=== PATIENT | male | born 1955 | race Caucasian/White ===

== ENCOUNTER → 2016-10-26 | Outpatient (CLI) | payer BC ==
[~2016-10-26] MED LIST: ALBUAER2 INH; ASPI81TA28 PO; CLR10 PO; CZR50 PO; DILT120T3 PO; FLM4 PO; FLUT0.0529; FLUT0.15 NAE; HYDR-5688 PO; METF500T5 PO; MOME200A INH; MULT-506 PO; NAPR1TAB9 PO; PRAV10TA39 PO; PRS5 PO; PRVC/20 PO; PRVHFAIN INH; RANI150T2 PO; SPR25 PO
[2016-10-26 12:09] LABS: BASO % 0.5 %; BASO ABS # 0.04 K/uL (0-0.2); COMPLETE YES; EOS % 3.3 %; HEMATOCRIT 41.2 % (42-52); IG% 0.3 %; LYMPH % 23.6 %; LYMPH ABS # 1.72 K/uL (1.2-3.4); MEAN CORPUSCULAR HEMOGLOBIN 31.2 pg (25-34); MEAN CORPUSCULAR HGB CONC 34.7 g/dl (32-36); MEAN PLATELET VOLUME 11.6 fL (7.4-10.4); MONO % 11.2 %; NEUT % 61.1 %; PLATELET COUNT 173 K/uL (130-400); RED BLOOD COUNT 4.58 M/uL (4.7-6.1)
[2016-10-26 12:14] LABS: URINE APPEARANCE CLEAR (CLEAR); URINE BILIRUBIN NEG (NEG); URINE COLOR YELLOW; URINE EPITHELIAL CELL AUTO 0-5 /lpf (0-5); URINE NITRITE NEG (NEG); URINE SPECIFIC GRAVITY 1.015 (1.000-1.030); UROBILINOGEN NEG (NEG); ZZUR CULT IF INDIC CLEAN CATCH NO
[2016-10-26 12:17] LABS: MANUAL MICROSCOPIC REQUIRED? NO; REVIEW REQ? NO
[2016-10-26 13:54] LABS: ESTIMATED AVERAGE GLUCOSE 111 mg/dl; HA1C FLAG Normal (Normal)
[2016-10-26 14:38] LABS: ALT/SGPT 32 U/L (12-78); BLOOD UREA NITROGEN 18 mg/dl (7-18); CALCIUM 9.1 mg/dl (8.5-10.1); CARBON DIOXIDE 24 mmol/L (21-32); CHLORIDE 109 mmol/L (98-107); CHOLESTEROL 135 mg/dl (0-200); GLUCOSE 101 mg/dl (70-99); POTASSIUM 4.1 mmol/L (3.5-5.1); SODIUM 142 mmol/L (136-145); TRIGLYCERIDES 87 mg/dl (0-150); VERY LOW DENSITY LIPOPROT CALC 17 mg/dl
[2016-10-26 14:44] LABS: ALB/GLOB RATIO 1.2 (0.9-2); AST/SGOT 37 U/L (15-37); CHOLESTEROL/HDL RATIO 3.2; HDL CHOLESTEROL 42 mg/dl; LDL CHOLESTEROL CALCULATED 76 mg/dl; PROSTATE SPECIFIC ANTIGEN 0.324 ng/ml (0.000-4.000)
[2016-10-26 14:54] LABS: ALKALINE PHOSPHATASE 70 U/L (45-117)
== END | disposition home or self-care (01) ==
LOC: C.LABBFT 07:49
PROVIDERS: ATTEND Internal Medicine
DX: I10 Essential (primary) hypertension (principal); R73.01 Impaired fasting glucose; E78.5 Hyperlipidemia, unspecified; Z12.5 Encounter for screening for malignant neoplasm of prostate

== ENCOUNTER 2017-03-01 21:15 | Emergency (ER) | payer BC ==
[~2017-03-01] VITALS: Ht 180.3 cm; Wt 127.3 kg
[~2017-03-01 21:15] MED LIST changes: -CZR50 PO; -FLM4 PO; -FLUT0.15 NAE; -PRS5 PO; -PRVC/20 PO; -PRVHFAIN INH; -RANI150T2 PO; -SPR25 PO
[2017-03-01 21:22] VITALS: TEMP 36.7; Ht 180.3 cm; Wt 127.3 kg
[2017-03-01] MEDS ORDERED: PRVC/20 PO (22:04)
[2017-03-01] MEDS ORDERED: CZR50 PO (22:04)
[2017-03-01] MEDS ORDERED: PRS5 PO (22:04)
[2017-03-01] MEDS ORDERED: FLUT0.15 NAE (22:07)
[2017-03-01] MEDS ORDERED: PRVHFAIN INH (22:07)
[2017-03-01] MEDS ORDERED: SPR25 PO (22:35)
[2017-03-01] MEDS ORDERED: RANI150T2 PO (22:35)
[2017-03-01] MEDS ORDERED: FLM4 PO (22:35)
[2017-03-01 22:56] LABS: BASO % 0.7 %; BASO ABS # 0.06 K/uL (0-0.2); COMPLETE YES; EOS % 3.8 %; HEMATOCRIT 38.2 % (42-52); IG% 0.3 %; LYMPH % 26.5 %; LYMPH ABS # 2.43 K/uL (1.2-3.4); MEAN CELL VOLUME 88.4 fL (80-100); MEAN CORPUSCULAR HEMOGLOBIN 31.9 pg (25-34); MEAN CORPUSCULAR HGB CONC 36.1 g/dl (32-36); MEAN PLATELET VOLUME 10.1 fL (7.4-10.4); MONO % 11.8 %; NEUT % 56.9 %; PLATELET COUNT 262 K/uL (130-400); RED BLOOD COUNT 4.32 M/uL (4.7-6.1); WHITE BLOOD COUNT 9.16 K/uL (4.8-10.8)
[2017-03-01 23:14] LABS: BUN/CREATININE RATIO 19.8 (10-20); CALCIUM 8.6 mg/dl (8.5-10.1); CREATININE 1.2 mg/dl (0.60-1.40); POTASSIUM 4.4 mmol/L (3.5-5.1)
[2017-03-02 00:32] VITALS: BP 120/70; PULSE 73; O2SAT 98
--- NOTE | 2017-03-02 02:39 | EMERGENCY ROOM VISIT NOTE ---
History First contact with patient: 22:25 Chief Complaint: SWELLING TO EXTREMITY Stated Complaint: LEGS SWELLING,RT LEG WORSE History of Present Illness The patient is a 61 year old male who presents to the Emergency Room with complaints of bilateral lower extremity edema for the past 10 days. The patient states that his symptoms began prior to going on vacation in [facility]. He has a history of lower extremity edema, and takes spironolactone on a daily basis for this. The patient has an appointment in 4 or 5 days with his primary care physician, however he became worried as his symptoms seem to be progressive and not improving. When he elevates his legs, the swelling does go down. The patient has not had fever or chills. No chest pain, chest tightness, shortness of breath, coughing. He rates his discomfort a 4/10. Review of Systems More than 10 systems were reviewed and otherwise negative with the exception of history of present illness. Past Medical/Surgical History Medical Problems: (1) Hypertension Nos (2) Obesity, Nos Surgical Problems: (1) History of total knee replacement Family History Cancer Gallbladder disease Heart disease Hypertension Lung disease Social History Smoking Status: Never Smoker Alcohol Use: none Drug Use: none Marital Status: Housing Status: lives with family Occupation Status: employed Current/Historical Medications Scheduled Aspirin (Aspirin Ec), 81 MG PO QAM Diltiazem Hcl (Diltiazem Hcl), 120 MG PO TID Finasteride (Finasteride), 5 MG PO DAILY Loratadine (Claritin), 10 MG PO DAILY Losartan Potassium (Losartan Potassium), 50 MG PO DAILY Metformin Hcl Er (Glucophage Er), 1,000 MG PO QPM Mometasone Furoate-Formoterol (Dulera 200/5 Mcg), 2 PUFFS INH BID Naproxen (Aleve), 220 MG PO QAM Pravastatin Sod (Pravastatin Sodium), 20 MG PO HS Ranitidine HCl (Ranitidine HCl), 150 MG PO QAM Spironolactone (Spironolactone), 25 MG PO QAM Tamsulosin HCl (Tamsulosin HCl), 0.4 MG PO HS Scheduled PRN Albuterol (Ventolin Hfa), 2 PUFFS INH QID PRN for SOB/Wheezing Fluticasone Propionate (Nasal) (Flonase Allergy Relief), 2 SPRAYS MARY JANE DAILY PRN for Allergy Symptoms Physical Exam Vital Signs Date Time Temp Pulse Resp B/P (MAP) Pulse Ox O2 Delivery O2 Flow Rate FiO2 03/02/17 00:32 73 16 120/70 98 Room Air 03/01/17 22:48 75 16 117/63 98 Room Air 03/01/17 21:22 36.7 76 18 135/78 96 Room Air Pain Rating (0-10): 0 Physical Exam VITALS: Vitals are noted on the nurse's note and reviewed by myself. Vital signs stable. GENERAL: Well-developed, well-nourished, white male, who is in no acute distress and resting comfortably. Patient is cooperative with the examination. HEART: Regular rate and rhythm without murmurs gallops or rubs. LUNGS: Clear to auscultation bilaterally without wheezes, rales or rhonchi. No retractions or accessory muscle use. MUSCULOSKELETAL: 1+ pitting pretibial edema in the bilateral lower extremities. There is mild stasis dermatitis right greater than left. No palpable cord or posterior calf tenderness. No evidence of cellulitis of the lower extremities. NEURO: Patient was alert and oriented to person place and time. CN II through XII grossly intact. Medical Decision & Procedures ER Provider Diagnostic Interpretation: Preliminary Findings Only See Final Report For Complete Findings US VENOUS BILATERAL LOWER EXTREMITIES: No DVT Laboratory Results 03/01/17 22:45 Red Blood Count 4.32, Mean Corpuscular Volume 88.4, Mean Corpuscular Hemoglobin 31.9, Mean Corpuscular Hemoglobin Concent 36.1, Mean Platelet Volume 10.1, Neutrophils (%) (Auto) 56.9, Lymphocytes (%) (Auto) 26.5, Monocytes (%) (Auto) 11.8, Eosinophils (%) (Auto) 3.8, Basophils (%) (Auto) 0.7, Neutrophils # (Auto ) 5.21, Lymphocytes # (Auto) 2.43, Monocytes # (Auto) 1.08, Eosinophils # (Auto ) 0.35, Basophils # (Auto) 0.06 03/01/17 22:45 Test 03/01/17 22:45 White Blood Count 9.16 K/uL (4.8-10.8) Red Blood Count 4.32 M/uL (4.7-6.1) Hemoglobin 13.8 g/dL (14.0-18.0) Hematocrit 38.2 % (42-52) Mean Corpuscular Volume 88.4 fL (80-100) Mean Corpuscular Hemoglobin 31.9 pg (25-34) Mean Corpuscular Hemoglobin Concent 36.1 g/dl (32-36) Platelet Count 262 K/uL (130-400) Mean Platelet Volume 10.1 fL (7.4-10.4) Neutrophils (%) (Auto) 56.9 % Lymphocytes (%) (Auto) 26.5 % Monocytes (%) (Auto) 11.8 % Eosinophils (%) (Auto) 3.8 % Basophils (%) (Auto) 0.7 % Neutrophils # (Auto) 5.21 K/uL (1.4-6.5) Lymphocytes # (Auto) 2.43 K/uL (1.2-3.4) Monocytes # (Auto) 1.08 K/uL (0.11-0.59) Eosinophils # (Auto) 0.35 K/uL (0-0.5) Basophils # (Auto) 0.06 K/uL (0-0.2) RDW Standard Deviation 41.4 fL (36.4-46.3) RDW Coefficient of Variation 12.8 % (11.5-14.5) Immature Granulocyte % (Auto) 0.3 % Immature Granulocyte # (Auto) 0.03 K/uL (0.00-0.02) Anion Gap 4.0 mmol/L (3-11) Est Creatinine Clear Calc Drug Dose 87.8 ml/min Estimated GFR () 75.2 Estimated GFR (Non- 64.9 BUN/Creatinine Ratio 19.8 (10-20) Calcium Level 8.6 mg/dl (8.5-10.1) Total Bilirubin 0.2 mg/dl (0.2-1) Aspartate Amino Transf (AST/SGOT) 33 U/L (15-37) Alanine Aminotransferase (ALT/SGPT) 31 U/L (12-78) Alkaline Phosphatase 74 U/L (45-117) Troponin I 0.034 ng/ml (0-0.045) Pro-B-Type Natriuretic Peptide 22 pg/ml (0-900) Total Protein 7.6 gm/dl (6.4-8.2) Albumin 3.8 gm/dl (3.4-5.0) Globulin 3.8 gm/dl (2.5-4.0) Albumin/Globulin Ratio 1.0 (0.9-2) ED Course Physical exam and history were performed. Nursing notes, EMR, and Medication List were personally reviewed. Patient appears to have swelling to the bilateral lower extremities for the past 10 days. On examination the patient does not appear toxic, however he does have noted swelling to the lower extremities. He does have a recent travel history as she was on vacation in [facility]. IV access was established and labs were obtained. Ultrasound was performed. The patient's blood work does not show a significantly elevated white blood cell count, gross anemia, bandemia, or significant electrolyte imbalance. Troponin 1 is negative. BNP is negative. Ultrasound does not show evidence of acute DVT. Overall the patient appears stable for discharge home. He is likely experiencing some dependent edema, and evidently has an upcoming appointment in a few days with his primary care physician. I did discuss conservative measures with the patient including decrease in dietary salt, rest, elevation, and compression. The patient may also wish to have a conversation with his PCP about as needed dosing of a diuretic if this continues. The patient was pleased with this plan and voiced understanding. He will keep his upcoming appointment. He was otherwise invited back to the ER with any new, worsening, or concerning symptoms. The chart was completed utilizing [employer] Speech Voice Recognition Software. Grammatical errors, random word insertions, pronoun errors, and incomplete sentences are an occasional consequence of this system due to software limitations, ambient noise, and hardware issues. Any formal questions or concerns about the content, text, or information contained within the body of this dictation should be directly addressed to the provider for clarification. . Medical Decision Differential diagnosis: Etiologies such as DVT, musculoskeletal, infection, joint effusion, trauma, lymphedema, idiopathic, CHF, as well as others were entertained.. Impression Primary Impression: Lower extremity edema Departure Information Dispostion Home / Self-Care Condition GOOD Forms HOME CARE DOCUMENTATION FORM, IMPORTANT VISIT INFORMATION Patient Instructions My [facility] Additional Instructions You were seen and evaluated today on an emergency basis only. This is not a substitute for, or an effort to provide, complete comprehensive medical care. It is not possible to recognize and treat all injuries or illnesses in a single emergency department visit. For this reason it is recommended that you followup with your primary care physician next week as scheduled for a follow-up. Continue your at-home medications. Avoid dietary salt. Elevate your legs for comfort. You are welcome to return to the emergency department anytime with new, worsening, or concerning symptoms.
--- NOTE | 2017-03-02 07:02 | DIAGNOSTIC IMAGING REPORT ---
BILATERAL LOWER EXTREMITY VENOUS DOPPLER HISTORY: B/L Leg edema. Recent travel. COMPARISON STUDY: None. FINDINGS: There is normal compressibility, flow, and augmentation within the bilateral lower extremity deep venous systems. IMPRESSION: No DVT within the right or left lower extremity. Electronically signed by: Ayaz Muro M.D. 03/02/2017 7:01 AM Dictated Date/Time: 03/02/2017 7:01 AM
== END 2017-03-02 01:47 | disposition home or self-care (01) ==
LOC: C.EDB 21:15
DX: R60.0 Localized edema (principal); I10 Essential (primary) hypertension; Z96.659 Presence of unspecified artificial knee joint; Z79.82 Long term (current) use of aspirin; Z79.899 Other long term (current) drug therapy; Z80.9 Family history of malignant neoplasm, unspecified; Z83.79 Family history of other diseases of the digestive system; Z82.49 Family history of ischemic heart disease and other diseases of the circulatory system

== ENCOUNTER → 2017-07-04 | Day surgery (SDC) | payer BC ==
[2017-06-25 10:10] VITALS: Ht 180.3 cm; Wt 122.7 kg
[~2017-07-04] VITALS: Ht 180.3 cm; Wt 122.7 kg
[~2017-07-04] MED LIST changes: -ALBUAER2 INH; +CZR50 PO; +FLM4 PO; -FLUT0.0529; +FLUT0.15 NAE; -HYDR-5688 PO; +LIDOCAINE HCL 2% 2 ML VIAL (20MG/ML) ONE; -MULT-506 PO; -PRAV10TA39 PO; +PROPOFOL IV EMULSION 10 MG/ML 20 ML VIAL IV ONE; +PRS5 PO; +PRVC/20 PO; +PRVHFAIN INH; +RANI150T2 PO; +SODIUM CHLORIDE 0.9% 500ML 500 ML IV ONE; +SPR25 PO
--- NOTE | 2017-07-04 14:05 | Endo History and Physical ---
History & Physical Date of Service: Jul 04, 2017. Chief Complaint: Screening Referring Physician: Dr. Villegas History of Present Illness 62 yo CM who presents for screening colonoscopy. Past Medical History Diabetes, High Cholesterol, Hypertension Past Surgical History Hx Cardiac Surgery: No Hx Internal Defibrillator: No Hx Pacemaker: No Hx Abdominal Surgery: Yes (INGUINAL HERNIA REPAIR) Hx of Implantable Prosthesis: No Hx Post-Op Nausea and Vomiting: No Hx Cancer Surgery: No Hx Thoracic Surgery: No Hx Orthopedic: Yes (LT TKA, LT RCR, L4-L5 MICRODISCECTOMY, RT KNEE SCOPE) Hx Urinary Tract Surgery: No Family History None Social History Smoking Status: Former Smoker Hx Substance Use: No Hx Alcohol Use: Yes ("MINIMAL") Allergies Coded Allergies: Cephalexin (Verified Allergy, Mild, RASH, 06/25/17) Lisinopril (Verified Allergy, Mild, Cough, 06/25/17) Penicillins (Verified Allergy, Mild, rash, 06/25/17) Shellfish (Verified Allergy, Mild, throat swelling, SOB, 06/25/17) ALLERGY TO RAW SHELLFISH Warfarin (Verified Allergy, Unknown, RASH, 07/04/17) Codeine (Verified Adverse Reaction, Unknown, HEADACHE, 06/25/17) Meloxicam (Verified Adverse Reaction, Unknown, HEADACHE, 06/25/17) Current Medications Reported Home Medications Medications Dose Route/Sig Max Daily Dose Days Date Category Flonase Allergy Relief (Fluticasone Propionate (Nasal)) 50 Mcg/Act Spr 2 Sprays MARY JANE DAILY PRN 03/01/17 Reported Ventolin Hfa (Albuterol) 60 Puffs/5400 Mcg Aers 2 Puffs INH QID PRN 03/01/17 Reported Losartan Potassium 50 Mg Tab 50 Mg PO QAM 03/01/17 Reported Pravastatin Sodium (Pravastatin Sod) 20 Mg Tab 20 Mg PO HS 03/01/17 Reported Finasteride 5 Mg Tab 5 Mg PO LUNCH 03/01/17 Reported Dulera 200/5 Mcg (Mometasone Furoate-Formoterol) 1 Aer Aer 2 Puffs INH BID 01/01/15 Reported Tamsulosin HCl 0.4 Mg Cap 0.4 Mg PO HS 11/23/14 Reported Ranitidine HCl 150 Mg Tab 150 Mg PO QAM 11/23/14 Reported Spironolactone 25 Mg Tab 25 Mg PO QAM 11/23/14 Reported Aleve (Naproxen) 220 Mg Tab 220 Mg PO QAM 02/09/14 Reported Glucophage Er (Metformin HCl) 500 Mg Tab 2 Tabs PO QPM 02/09/14 Reported Diltiazem Hcl 120 Mg Tab 120 Mg PO TID 02/09/14 Reported Aspirin Ec (Aspirin) 81 Mg Tab 81 Mg PO QAM 02/09/14 Reported Claritin (Loratadine) 10 Mg Tab 10 Mg PO QAM 10/31/13 Reported Vital Signs Weight (Kilograms): 122.73 Height (Feet): 5 Height (Inches): 11 Physical Exam General Appearance: WD/WN, no apparent distress Respiratory/Chest: Auscultation: breath sounds normal Cardiovascular: Heart Auscultation: RRR Abdomen: Bowel Sounds: normal Inspection & Palpation: soft, non-distended, no tenderness, guarding & rebound Assessment and Plan Assessment: 62 yo CM who presents for screening colonoscopy. Plan: Proceed with colonoscopy.
[2017-07-04 14:16] VITALS: TEMP 37.1
--- NOTE | 2017-07-04 14:51 | Discharge Instructions ---
Endoscopy Patient Instructions Date / Procedure(s) Performed Jul 04, 2017. Colonoscopy Allergy Information Coded Allergies: Cephalexin (Verified Allergy, Mild, RASH, 06/25/17) Lisinopril (Verified Allergy, Mild, Cough, 06/25/17) Penicillins (Verified Allergy, Mild, rash, 06/25/17) Shellfish (Verified Allergy, Mild, throat swelling, SOB, 06/25/17) ALLERGY TO RAW SHELLFISH Warfarin (Verified Allergy, Unknown, RASH, 07/04/17) Codeine (Verified Adverse Reaction, Unknown, HEADACHE, 06/25/17) Meloxicam (Verified Adverse Reaction, Unknown, HEADACHE, 06/25/17) Discharge Date / Findings Jul 04, 2017. Rectal polyp Internal hemorrhoids Medication Instructions Stopped Medication(s): Spironolactone ASA 81 mg Metformin OK to resume all medications today as prescribed Reported Home Medications Medications Dose Route/Sig Max Daily Dose Days Date Category Flonase Allergy Relief (Fluticasone Propionate (Nasal)) 50 Mcg/Act Spr 2 Sprays MARY JANE DAILY PRN 03/01/17 Reported Ventolin Hfa (Albuterol) 60 Puffs/5400 Mcg Aers 2 Puffs INH QID PRN 03/01/17 Reported Losartan Potassium 50 Mg Tab 50 Mg PO QAM 03/01/17 Reported Pravastatin Sodium (Pravastatin Sod) 20 Mg Tab 20 Mg PO HS 03/01/17 Reported Finasteride 5 Mg Tab 5 Mg PO LUNCH 03/01/17 Reported Dulera 200/5 Mcg (Mometasone Furoate-Formoterol) 1 Aer Aer 2 Puffs INH BID 01/01/15 Reported Tamsulosin HCl 0.4 Mg Cap 0.4 Mg PO HS 11/23/14 Reported Ranitidine HCl 150 Mg Tab 150 Mg PO QAM 11/23/14 Reported Spironolactone 25 Mg Tab 25 Mg PO QAM 11/23/14 Reported Aleve (Naproxen) 220 Mg Tab 220 Mg PO QAM 02/09/14 Reported Glucophage Er (Metformin HCl) 500 Mg Tab 2 Tabs PO QPM 02/09/14 Reported Diltiazem Hcl 120 Mg Tab 120 Mg PO TID 02/09/14 Reported Aspirin Ec (Aspirin) 81 Mg Tab 81 Mg PO QAM 02/09/14 Reported Claritin (Loratadine) 10 Mg Tab 10 Mg PO QAM 10/31/13 Reported Provider Instructions Activity Restrictions - No exercising or heavy lifting for 24 hours. - Do not drink alcohol the day of the procedure. - Do not drive a car or operate machinery until the day after the procedure. - Do not make any important decisions or sign important papers in 24 hours after the procedure. Following Day: - Return to full activity which may include returning to work/school. Diet Start your diet with liquids and light foods (jello, soup, juice, toast). Then eat your usual diet if not nauseated. Treatment For Common After Affects For mild abdominal pain, bloating, or excessive gas: - Rest - Eat lightly - Lie on right side Follow-Up Information Follow-up with Dr Villegas as scheduled Anesthesia Information What You Should Know You have had a procedure that required some medicine to reduce anxiety and discomfort. This treatment is called moderate sedation. After receiving the treatment, you may be sleepy, but you will be able to breathe on your own. The effects of the treatment may last for several hours. Follow these instructions along with Activity/Diet recommendations noted above: * Do NOT do anything where dizziness or clumsiness would be dangerous. * Rest quietly at home today, then you can be up and about tomorrow. * Have a responsible person stay with you the rest of today. * You may have had an I.V. today. If so, you may take the dressing off later today. Recommendations Call your doctor if: * Trouble breathing * Continuous vomiting for more than 24 hours * Temperature above 101 degrees * Severe abdominal pain or bloating * Pain not relieved by pain medicine ordered * There is increased drainage or redness from any incision * A large amount of rectal bleeding greater than 2-3 tablespoons. (If you had a polyp/s removed or have hemorrhoids, a small amount of blood - from the rectum is to be expected.) * You have any unanswered questions or concerns. IN THE EVENT OF A SERIOUS EMERGENCY, GO TO THE NEAREST EMERGENCY ROOM Your discharge instructions were prepared by provider Johnnie Spann. Patient Instructions Signature Page Yusuf Garza Patient (or Guardian) Signature/Date: I have read and understand the instructions given to me by my caregivers. Caregiver/RN/Doctor Signature/Date: The above-named patient and/or guardian has received patient instructions on this date. + Original Patient Signature Page (only) stays with chart. Please make copy for patient.
--- NOTE | 2017-07-04 14:58 | GI REPORT ---
Procedure Date: 07/04/2017 1:50 PM Procedure: Colonoscopy Indications: Screening for colorectal malignant neoplasm Medicines: Monitored Anesthesia Care Complications: No immediate complications. Estimated Blood Loss: Estimated blood loss: none. Procedure: Pre-Anesthesia Assessment: - Prior to the procedure, a History and Physical was performed, and patient medications and allergies were reviewed. The patient's tolerance of previous anesthesia was also reviewed. The risks and benefits of the procedure and the sedation options and risks were discussed with the patient. All questions were answered, and informed consent was obtained. Prior Anticoagulants: The patient has taken aspirin, last dose was 1 day prior to procedure. ASA Grade Assessment: III - A patient with severe systemic disease. After reviewing the risks and benefits, the patient was deemed in satisfactory condition to undergo the procedure. After I obtained informed consent, the scope was passed under direct vision. Throughout the procedure, the patient's blood pressure, pulse, and oxygen saturations were monitored continuously. The Scope was introduced through the anus and advanced to the terminal ileum. The colonoscopy was performed without difficulty. The patient tolerated the procedure well. The quality of the bowel preparation was good. The terminal ileum, ileocecal valve, appendiceal orifice, and rectum were photographed. Findings: The perianal and digital rectal examinations were normal. A 4 mm polyp was found in the rectum. The polyp was sessile. The polyp was removed with a cold snare. Resection and retrieval were complete. Non-bleeding internal hemorrhoids were found during retroflexion. The hemorrhoids were small. Impression: - One 4 mm polyp in the rectum, removed with a cold snare. Resected and retrieved. - Non-bleeding internal hemorrhoids. Recommendation: - Resume previous diet. - Continue present medications. - Repeat colonoscopy for surveillance based on pathology results. - Return to primary care physician as previously scheduled. Johnnie Spann DO 07/04/2017 2:58:27 PM This report has been signed electronically. Note Initiated On: 07/04/2017 1:50 PM I attest to the content of the Intraoperative Record and orders documented therein, exceptions below
[2017-07-04 15:15] VITALS: BP 125/78; PULSE 59; O2SAT 95
--- NOTE | 2017-07-04 15:15 | Anesthesiology Progress Note ---
Anesthesia Post Op Note Date & Time Jul 04, 2017 at 15:15 Vital Signs Vital Signs Past 12 Hours Date Time Temp Pulse Resp B/P (MAP) Pulse Ox O2 Delivery O2 Flow Rate FiO2 07/04/17 15:00 63 16 129/72 (91) 96 Room Air 07/04/17 14:45 63 16 93/47 (62) 94 Room Air 07/04/17 14:16 37.1 72 20 148/71 (96) 96 Room Air Notes Mental Status: alert / awake / arousable, participated in evaluation Pt Amnestic to Procedure: Yes Nausea / Vomiting: adequately controlled Pain: adequately controlled Airway Patency, RR, SpO2: stable & adequate BP & HR: stable & adequate Hydration State: stable & adequate Anesthetic Complications: no major complications apparent
== END | disposition home or self-care (01) ==
LOC: C.GI 13:42
PROVIDERS: ATTEND Internal Medicine
DX: Z12.11 Encounter for screening for malignant neoplasm of colon (principal); D12.8 Benign neoplasm of rectum; K64.8 Other hemorrhoids; I10 Essential (primary) hypertension; E78.00 Pure hypercholesterolemia, unspecified; E11.9 Type 2 diabetes mellitus without complications; Z79.82 Long term (current) use of aspirin; Z79.899 Other long term (current) drug therapy; Z79.84 Long term (current) use of oral hypoglycemic drugs; J45.909 Unspecified asthma, uncomplicated; G47.33 Obstructive sleep apnea (adult) (pediatric); J30.2 Other seasonal allergic rhinitis; M19.90 Unspecified osteoarthritis, unspecified site

== ENCOUNTER → 2017-10-31 | Outpatient (CLI) | payer OTHER ==
[~2017-10-31] MED LIST changes: -LIDOCAINE HCL 2% 2 ML VIAL (20MG/ML) ONE; -PROPOFOL IV EMULSION 10 MG/ML 20 ML VIAL IV ONE; -SODIUM CHLORIDE 0.9% 500ML 500 ML IV ONE
[2017-10-31 12:22] LABS: BASO % 0.4 %; BASO ABS # 0.03 K/uL (0-0.2); EOS % 2.2 %; EOS ABS # 0.17 K/uL (0-0.5); HEMATOCRIT 42.8 % (42-52); HEMOGLOBIN 14.9 g/dL (14.0-18.0); IG# 0.03 K/uL (0.00-0.02); LYMPH % 17.1 %; LYMPH ABS # 1.31 K/uL (1.2-3.4); MEAN CORPUSCULAR HGB CONC 34.8 g/dl (32-36); MEAN PLATELET VOLUME 11.4 fL (7.4-10.4); MONO % 9.9 %; MONO ABS # 0.76 K/uL (0.11-0.59); NEUT ABS # 5.38 K/uL (1.4-6.5); PLATELET COUNT 228 K/uL (130-400); RED CELL DISTRIBUTION WIDTH SD 42.4 fL (36.4-46.3); WHITE BLOOD COUNT 7.68 K/uL (4.8-10.8)
[2017-10-31 12:37] LABS: HEMOGLOBIN A1C 5.7 % (4.5-5.6)
[2017-10-31 12:49] LABS: ALBUMIN 4.2 gm/dl (3.4-5.0); ALT/SGPT 26 U/L (12-78); AST/SGOT 29 U/L (15-37); BLOOD UREA NITROGEN 20 mg/dl (7-18); CALCIUM 9.4 mg/dl (8.5-10.1); CARBON DIOXIDE 24 mmol/L (21-32); CREATININE 1.26 mg/dl (0.60-1.40); GLUCOSE 124 mg/dl (70-99); POTASSIUM 4.2 mmol/L (3.5-5.1); SODIUM 135 mmol/L (136-145)
[2017-10-31 12:52] LABS: ALKALINE PHOSPHATASE 75 U/L (45-117); CHOLESTEROL 130 mg/dl (0-200); LDL CHOLESTEROL CALCULATED 70 mg/dl; TOTAL PROTEIN 8.3 gm/dl (6.4-8.2)
== END | disposition home or self-care (01) ==
LOC: C.LABBFT 08:11
PROVIDERS: ATTEND Internal Medicine
DX: R73.01 Impaired fasting glucose (principal); E78.5 Hyperlipidemia, unspecified; Z12.5 Encounter for screening for malignant neoplasm of prostate

== ENCOUNTER 2020-03-23 08:29 | Inpatient (IN) ==
--- NOTE | 2020-02-24 11:51 | PAT Medication Instructions ---
Medication Instructions Date of Service February 24, 2020 Home Medications Medication Instructions Recorded budesonide-formoterol HFA 160 2 puffs INH BID #3 inhaler 05/29/19 mcg-4.5 mcg/actuation aerosol inhaler ibuprofen 600 mg tablet 600 mg PO Q6H PRN #30 tab 11/18/19 diltiazem HCl 120 mg 120 mg PO TID #270 cap 12/23/19 capsule,extended release 24 hr famotidine 20 mg tablet 20 mg PO BID #180 tab 12/23/19 tamsulosin 0.4 mg capsule See Rx Instructions .ROUTE 02/03/20 .COMPLEX #30 cap albuterol sulfate 90 mcg/actuation aerosol inhaler 2 puffs INH Q6H PRN aspirin 81 mg tablet,delayed release 81 mg PO QAM loratadine 10 mg capsule 10 mg PO QAM budesonide-formoterol HFA 160 mcg-4.5 mcg/actuation aerosol inhaler 2 puffs INH BID ibuprofen 600 mg tablet 600 mg PO Q6H PRN diltiazem HCl 120 mg capsule,extended release 24 hr 120 mg PO TID famotidine 20 mg tablet 20 mg PO BID tamsulosin 0.4 mg capsule See Rx Instructions .ROUTE .COMPLEX ferrous sulfate [iron] 325 mg PO WK finasteride 5 mg PO QPM losartan 50 mg PO QAM metformin 1,000 mg PO QPM naproxen sodium [Aleve] 220 mg PO QAM pravastatin 20 mg PO QPM spironolactone 25 mg PO QAM ASK your surgeon for instructions ibuprofen 600 mg tablet 600 mg PO Q6H PRN naproxen sodium [Aleve] 220 mg PO QAM DO NOT take the morning of surgery loratadine 10 mg capsule 10 mg PO QAM ferrous sulfate [iron] 325 mg PO WK losartan 50 mg PO QAM spironolactone 25 mg PO QAM Take morning of surgery With a small sip of water, OTHERWISE NOTHING TO EAT OR DRINK AFTER MIDNIGHT: albuterol sulfate 90 mcg/actuation aerosol inhaler 2 puffs INH Q6H PRN (use if needed; please bring with you to hospital day of surgery if possible) aspirin 81 mg tablet,delayed release 81 mg PO QAM budesonide-formoterol HFA 160 mcg-4.5 mcg/actuation aerosol inhaler 2 puffs INH BID diltiazem HCl 120 mg capsule,extended release 24 hr 120 mg PO TID famotidine 20 mg tablet 20 mg PO BID tamsulosin 0.4 mg capsule See Rx Instructions .ROUTE .COMPLEX Take evening before surgery albuterol sulfate 90 mcg/actuation aerosol inhaler 2 puffs INH Q6H PRN .(if needed) budesonide-formoterol HFA 160 mcg-4.5 mcg/actuation aerosol inhaler 2 puffs INH BID diltiazem HCl 120 mg capsule,extended release 24 hr 120 mg PO TID famotidine 20 mg tablet 20 mg PO BID finasteride 5 mg PO QPM metformin 1,000 mg PO QPM pravastatin 20 mg PO QPM Other Notes If you have any questions please call us at [phone] or [phone] or [phone] or [phone]
--- NOTE | 2020-02-27 10:27 | History & Physical Report ---
Date of Service February 27, 2020 date of surgery: 03-23-20 Procedure: Right Total Knee Arthroplasty Assessment & Plan (1) Arthritis of right knee: Risks and benefits of procedure discussed in detail today, patient would like to proceed with a Right total knee replacement at [facility] as scheduled. will obtain medical clearance from Dr Villegas prior to surgery as well as obtain PATs at [facility]. Will place on ASA 81mg po bid x 1 month post op, f/u 2 weeks post op for routine post-operative care and x-ray, sooner if having any problems. will make arrangements for HHPT at the time of discharge. At this point in time, has failed conservative measures and would like to proceed with surgical intervention. The risks and benefits have been discussed including, but not limited to, risk of infection, nerve injury, stiffness, loss of motion, failure to improve, etc. Reasonable outcomes and options of treatment were discussed. An explanation of appropriate alternatives to the procedure that may be advantageous were discussed and their risks and benefits, as well as the risks and benefits of not proceeding with treatment. I offered to answer any additional inquiries concerning the treatment involved. All the patient's questions were answered. The patient is agreeable, understanding of the treatment plan and alternatives, and wishes to proceed with the treatment plan. History of Present Illness Chief Complaint: Right knee pain Primary Care Provider: RACHEL Cárdenas Yusuf is a 64 year old male who complains of Right knee pain, presents for pre-op evaluation prior to a Right total knee replacement by dr March at [facility]. she complains of pain, crepitus, decreased range of motion, instability and stiffness in the right knee. she states that the symptoms have been chronic and non-traumatic. she states that the symptoms occur constantly with intermittent worsening. Currently the patient states that the symptoms are moderate-severe. The pain is described as aching, sharp and throbbing. The symptoms occur continuously. The symptoms are aggravated by ascending stairs, daily activities, first steps while awake walking. Prior NSAIDs include Ibuprofen and Aleve as well as prior pain medications include Tylenol. He has had Pt and sometimes uses a knee brace. Allergies Allergy/AdvReac Type Severity Reaction Status Date / Time cephalexin Allergy Mild Rash Verified 02/24/20 11:48 Penicillins Allergy Mild Rash Verified 02/24/20 11:48 shellfish derived Allergy Mild Throat Verified 02/24/20 11:48 swelling, SOB warfarin Allergy Unknown Rash Verified 02/24/20 11:48 lisinopril AdvReac Mild Cough Verified 02/24/20 11:48 codeine AdvReac Unknown Headache Verified 02/24/20 11:48 meloxicam AdvReac Unknown Headache Verified 02/24/20 11:48 Home Medications Home Medications Medication Instructions Recorded Confirmed Type albuterol sulfate 90 mcg/actuation 2 puffs INH Q6H PRN 04/18/19 02/20/20 History aerosol inhaler aspirin 81 mg tablet,delayed 81 mg PO QAM 04/18/19 02/20/20 History release loratadine 10 mg capsule 10 mg PO QAM 04/18/19 02/20/20 History budesonide-formoterol HFA 160 2 puffs INH BID #3 inhaler 05/29/19 02/20/20 Rx mcg-4.5 mcg/actuation aerosol inhaler ibuprofen 600 mg tablet 600 mg PO Q6H PRN #30 tab 11/18/19 02/20/20 Rx diltiazem HCl 120 mg 120 mg PO TID #270 cap 12/23/19 02/20/20 Rx capsule,extended release 24 hr famotidine 20 mg tablet 20 mg PO BID #180 tab 12/23/19 02/20/20 Rx tamsulosin 0.4 mg capsule See Rx Instructions .ROUTE 02/03/20 02/20/20 Rx .COMPLEX #30 cap ferrous sulfate [iron] 325 mg PO WK 02/20/20 02/20/20 History finasteride 5 mg PO QPM 02/20/20 02/20/20 History losartan 50 mg PO QAM 02/20/20 02/20/20 History metformin 1,000 mg PO QPM 02/20/20 02/20/20 History naproxen sodium [Aleve] 220 mg PO QAM 02/20/20 02/20/20 History pravastatin 20 mg PO QPM 02/20/20 02/20/20 History spironolactone 25 mg PO QAM 02/20/20 02/20/20 History Past Med/Surg History Medical History Asthma "mild" Benign localized hyperplasia of prostate with urinary obstruction hx per records GERD (gastroesophageal reflux disease) Gout hx Herpes zoster no further details per RN phone interview Hyperlipidemia Hypertension Obstructive sleep apnea per records Olecranon bursitis Prediabetes + oral meds Sensorineural hearing loss (SNHL) of left ear with unrestricted hearing of right ear Tinnitus, bilateral Surgical History H/O arthroscopic knee surgery RIGHT H/O colonoscopy H/O inguinal hernia repair H/O shoulder surgery History of back surgery NO METAL S/P tonsillectomy Total knee replacement status LEFT Family History Father Myocardial infarction Cancer Hypertension Heart disease Brother Hypertension Other Coronary heart disease Lung cancer No family history of adverse response to anesthesia No family history of bleeding disorder Denies family history of Ovarian cancer Prostate cancer Breast cancer Colorectal cancer Social History Smoking Status: Former smoker Smoking End Date: QUIT 30+ YRS AGO; Second Hand Exposure: No; Do You Dip or Chew Tobacco: No; Hx Alcohol Use: Yes Alcohol type: beer Hx Substance Use: No Preferred Language: Upper Sorbian Communication Ability: Effective Visual Impairment: No Limitations Hearing Ability: Normal [employer] Required: No Beliefs That Will Affect Care: None marital status: Current Living Situation: Spouse current occupational status: employed current occupation: [employer] Other Information That Helps Us Care for You: No Feels Safe at Home: Yes Safety Concerns: Feels Safe At This Time Dental Care, Regularly: Yes Physical Activity Frequency: Does not Exercise Review of Systems Review of Systems: All systems reviewed & are unremarkable except as noted in HPI & below Constitutional: no fever, no chills and no sweats Respiratory: no cough and no dyspnea Cardiovascular: no chest pain, no dyspnea and no orthopnea Gastrointestinal: no abdominal pain, no nausea and no vomiting Musculoskeletal: as per Subjective / HPI Physical Exam Physical Exam: Ht: 5ft 10in Wt: 122.47kg BP: 136/68 Constitutional: WD/WN, vitals as above no acute distress Respiratory: normal respiratory effort, lungs clear to auscultation no respiratory distress, no labored breathing and does not use accessory muscles Cardiovascular: RRR, no murmur, no edema Gastrointestinal (Abdomen): normal bowel sounds, soft, nontender, no hepatosplenomegaly Musculoskeletal: Knee: + knee abnormal to inspection (Right knee), + effusion (+1 effusion), + limited ROM of knee (ROM 0/3/110), + knee ROM with crepitation, + joint line tenderness (medial joint line) and + Emil's sign positive; no deformity, no skin erythema, no ecchymosis, no valgus laxity, no varus laxity, anterior drawer test negative, Adam's sign negative and pivot shift test negative Results & Data Results & Data ([facility]) Diagnostic Findings Right Knee X-ray confirms advanced degenerative changes to the right knee, tricompartmentally, narrowing of the medial and lateral compartment and patello- femoral joint with patellar spurring noted, osteophyte formation and subchondral sclerosis noted. no acute bony pathology noted.
--- NOTE | 2020-02-27 13:39 | Anesthesiology Consultation ---
Date of Service February 27, 2020 Assessment & Plan (1) Encounter for pre-operative examination: - Per PAT assessment on 02/26: Travel screen negative. No known COVID-19 positive contacts. No current COVID-19 related symptoms. Surgeon arranging preop COVID testing. Awaiting results. - Check [facility] AM DOS Chart Review Chart Review: Acceptable Risk for Surgery (pending surgeon-ordered PCP clearance scheduled 03/04 ([facility])) and Patient seen in Pre Admission Testing Teaching & Discussion Pre-Anesthesia Teaching/Discussion Notes: Instructed NPO after midnight before surgery,except medications with 15 cc of water. Medication instructions provided according to the PAT guidelines. History Surgery Operation Date: 03/23/20 09:55 Proposed Procedures p Right Total Knee Arthroplasty - Victoriano March DO Height/Weight Height: 5 ft 10 in Weight: 122.1 kg Allergies Allergy/AdvReac Type Severity Reaction Status Date / Time cephalexin Allergy Mild Rash Verified 02/24/20 11:48 Penicillins Allergy Mild Rash Verified 02/24/20 11:48 shellfish derived Allergy Mild Throat Verified 02/24/20 11:48 swelling, SOB warfarin Allergy Unknown Rash Verified 02/24/20 11:48 lisinopril AdvReac Mild Cough Verified 02/24/20 11:48 codeine AdvReac Unknown Headache Verified 02/24/20 11:48 meloxicam AdvReac Unknown Headache Verified 02/24/20 11:48 Medications Home Medications Medication Instructions Recorded Confirmed Last Taken albuterol sulfate 90 mcg/actuation 2 puffs INH Q6H PRN 04/18/19 02/20/20 Unknown aerosol inhaler aspirin 81 mg tablet,delayed 81 mg PO QAM 04/18/19 02/20/20 Unknown release loratadine 10 mg capsule 10 mg PO QAM 04/18/19 02/20/20 Unknown budesonide-formoterol HFA 160 2 puffs INH BID #3 inhaler 05/29/19 02/20/20 Unkno wn mcg-4.5 mcg/actuation aerosol inhaler ibuprofen 600 mg tablet 600 mg PO Q6H PRN #30 tab 11/18/19 02/20/20 Unknown diltiazem HCl 120 mg 120 mg PO TID #270 cap 12/23/19 02/20/20 Unknown capsule,extended release 24 hr famotidine 20 mg tablet 20 mg PO BID #180 tab 12/23/19 02/20/20 Unknown tamsulosin 0.4 mg capsule See Rx Instructions .ROUTE 02/03/20 02/20/20 Unknown .COMPLEX #30 cap ferrous sulfate [iron] 325 mg PO WK 02/20/20 02/20/20 Unknown finasteride 5 mg PO QPM 02/20/20 02/20/20 Unknown losartan 50 mg PO QAM 02/20/20 02/20/20 Unknown metformin 1,000 mg PO QPM 02/20/20 02/20/20 Unknown naproxen sodium [Aleve] 220 mg PO QAM 02/20/20 02/20/20 Unknown pravastatin 20 mg PO QPM 02/20/20 02/20/20 Unknown spironolactone 25 mg PO QAM 02/20/20 02/20/20 Unknown Past Medical History Medical History (Updated 02/27/20 @ 14:07 by Emperatriz Vick) Asthma "mild"/stable Benign localized hyperplasia of prostate with urinary obstruction hx per records GERD (gastroesophageal reflux disease) controlled Gout hx Herpes zoster 2011 Hyperlipidemia Hypertension Obesity Obstructive sleep apnea "mild-moderate" ISIDRA per Dr. Field records, pt reports that repeat testing was improved and only recommendation was weight loss but did mention trial of devices in the past (pt declined) Olecranon bursitis Prediabetes + oral meds Sensorineural hearing loss (SNHL) of left ear with unrestricted hearing of right ear Tinnitus, bilateral Exercise / Class Metabolic Activity II 4-5 Yardwork/Stairs/Walk up hill (one flight of stairs (no chest pain, no sob)) Past Family History Family History Father Myocardial infarction Cancer Hypertension Heart disease Brother Hypertension Other Coronary heart disease Lung cancer No family history of adverse response to anesthesia No family history of bleeding disorder Denies family history of Ovarian cancer Prostate cancer Breast cancer Colorectal cancer Past Surgical History Surgical History H/O arthroscopic knee surgery RIGHT H/O colonoscopy H/O inguinal hernia repair H/O shoulder surgery History of back surgery NO METAL S/P tonsillectomy Total knee replacement status LEFT Past Anesthesia History No Hx of Anesthesia Complications and No Family Hx of Anesthesia Complications History of PONV No Hx of PONV and Hx of Motion Sickness (remote hx) Social History Smoking Status: Former smoker Do You Dip or Chew Tobacco: No Smoking End Date: QUIT 30+ YRS AGO Hx Alcohol Use: Yes Alcohol type: beer Alcohol Intake Frequency Comment: RARE Hx Substance Use: No Review of Systems Reflux controlled. Patient denies chest pain, shortness of breath, dyspnea on exertion, fever, chills, cough, wheezing, palpitations. Physical Exam Vital Signs VITALS BP 127/75 P 72 TEMP 98.3 SP02 95%RA RESP 16 PHYSICAL Full neck and c-spine range of motion. Full TMJ range of motion. TMD 3.5 finger breaths Mallampati Score 1 Dentition: partial on lower/upper Lungs: clear throughout to auscultation Cardiac: regular rate and rhythm, no murmurs noted Spine: normal Carotid arteries: negative bruit Extremities: no edema Short, thick neck Testing Laboratory Results 02/27/20 14:00 02/27/20 14:00 PT 10.7 Seconds (9.0-12.0) 02/27/20 14:00 INR 1.0 (0.9-1.1) 02/27/20 14:00 APTT 28.8 Seconds (21.0-31.0) 02/27/20 14:00 Hemoglobin A1c 5.9 % (4.5-5.6) H 02/27/20 14:00 Urine Color Yellow 02/27/20 14:00 Urine Appearance Clear (Clear) 02/27/20 14:00 Urine pH 5.0 (4.5-7.5) 02/27/20 14:00 Ur Specific Imogene 1.027 (1.000-1.030) 02/27/20 14:00 Urine Protein Negative (Negative) 02/27/20 14:00 Urine Glucose (UA) Negative (Negative) 02/27/20 14:00 Urine Ketones Trace (Negative) H 02/27/20 14:00 Urine Nitrite Negative (Negative) 02/27/20 14:00 Ur Leukocyte Esterase Negative (Negative) 02/27/20 14:00 Blood Type A Negative 02/27/20 14:00 Antibody Screen NEGATIVE 02/27/20 14:00 - Mildly elevated potassium at 5.2 on preop labs- at anesthesiologist discretion AM DOS if repeat K+ level needed* - Surgeon's office made aware of elevated WBC* Electrocardiogram Date: 02/27/20 SB at 58bpm. Rightward axis. Chest X-Ray Date: 02/27/20 FINDINGS: Cardiomediastinal and hilar silhouettes are within normal limits. No pneumothorax, pleural effusion, airspace consolidation or overt pulmonary edema. The left lateral costophrenic angle is partially excluded from the [id number]. Healed remote fracture of the posterior right seventh rib. Bones appear grossly intact. IMPRESSION: No acute process. Pulmonary Function Test Date: 05/29/19 Mild mixed restrictive/obstructive changes. FVC 78% predicted. FEV1 79% predicted.
--- NOTE | 2020-02-27 14:32 | XRay Report ---
XR chest Pre-admission PA/Lat HISTORY: 64 years-old Male pat preoperative exam. COMPARISON: Chest radiograph 12/22/2014 TECHNIQUE: PA and lateral views of the chest FINDINGS: Cardiomediastinal and hilar silhouettes are within normal limits. No pneumothorax, pleural effusion, airspace consolidation or overt pulmonary edema. The left lateral costophrenic angle is partially exc luded from the [id number]. Healed remote fracture of the posterior right seventh rib. Bones appear grossly intact. IMPRESSION: No acute process. ACT 112: Negative or not required by law. The above report was generated using voice recognition software. It may contain grammatical, syntax o r spelling errors. Electronically signed by: Rhett Frankel M.D. 02/27/2020 2:30 PM
[2020-02-27 15:07] LABS: Basophils # (auto) 0.01 K/uL (0-0.2); Basophils % (auto) 0.1 %; Eosinophils # (auto) 0.13 K/uL (0-0.5); Eosinophils % (auto) 1.1 %; Hematocrit (blood only) 41.5 % (42-52); Hemoglobin 14.2 g/dL (14.0-18.0); Immature Granulocytes # (auto) 0.02 K/uL (0.00-0.02); Immature Granulocytes % (auto) 0.2 %; Mean Corpuscular Hemoglobin 30.8 pg (25-34); Mean Corpuscular Hgb Conc 34.2 g/dL (32-36); Mean Platelet Volume 10.9 fL (7.4-10.4); Monocytes % (auto) 10.4 %; Neutrophils % (auto) 75.2 %; Platelet Count 245 K/uL (130-400); RDW Coefficient of Variation 13.2 % (11.5-14.5); RDW Standard Deviation 42.9 fL (36.4-46.3); Red Blood Count 4.61 M/uL (4.7-6.1); White Blood Count 11.56 K/uL (4.8-10.8)
[2020-02-27 15:21] LABS: Albumin Level 3.9 gm/dl (3.4-5.0); BUN Creatinine Ratio 18.4 (10-20); Creatinine Clr Calc Pharmacy 82.2 ml/min; Est GFR (African American) 74.4; Est GFR (Non-African American) 64.2; Potassium 5.2 mmol/L (3.5-5.1)
[2020-02-27 15:27] LABS: Partial Thromboplastin Time 28.8 Seconds (21.0-31.0); Prothrombin Time 10.7 Seconds (9.0-12.0)
[2020-02-27 15:41] LABS: Appearance Urine Clear (Clear); Bilirubin Urine Negative (Negative); Blood Urine Negative (Negative); Color Urine Yellow; Glucose Urine UA Negative (Negative); Ketones Urine Trace (Negative); Leukocyte Esterase Urine Negative (Negative); Nitrite Urine Negative (Negative); Protein Urine Negative (Negative); Specific Gravity Urine 1.027 (1.000-1.030); Urobilinogen Urine Negative (Negative)
[2020-02-28 06:11] LABS: Estimated Average Glucose 123 mg/dl; Hemoglobin A1C 5.9 % (4.5-5.6)
--- NOTE | 2020-02-28 07:17 | Electrocardiogram Report ---
Test Reason : Blood Pressure : / mmHG Vent. Rate : 058 BPM Atrial Rate : 058 BPM P-R Int : 176 ms QRS Dur : 078 ms QT Int : 416 ms P-R-T Axes : 050 099 014 degrees QTc Int : 408 ms Sinus bradycardia Rightward axis Borderline ECG When compared with ECG of 02-DEC-2014 17:05, Premature ventricular complexes are no longer Present Confirmed by Augusto Saravia ([id number]) on 02/28/2020 7:16:36 AM Referred By: Victoriano March Confirmed By:Augusto Saravia
[~2020-03-23 08:29] MED LIST changes: +ACETAMINOPHEN 500 MG TAB PO SCH; -ASPI81TA28 PO; +BUPIVACAINE 0.5 % 5 MG/1 ML PF 10ML VIAL ONE; -CLR10 PO; -CZR50 PO; +CeleBREX 200 MG CAP PO SCH; -DILT120T3 PO; +EPINEPHrine INJ 1 MG/ML AMP ONE; +FAMOTIDINE 20 MG TAB PO SCH; -FLM4 PO; -FLUT0.15 NAE; +GABAPENTIN 600 MG DOSE PO SCH; +LR 500ML BOLUS, THEN 15ML/HR IV SCH; -METF500T5 PO; +METOCLOPRAMIDE HCL 10 MG TABLET PO SCH; -MOME200A INH; -NAPR1TAB9 PO; -PRS5 PO; -PRVC/20 PO; -PRVHFAIN INH; -RANI150T2 PO; +ROPIVACAINE 0.5% 5 MG/ML 30 ML VIAL ONE; +ROPIVACAINE 0.5% HCL/PF 150 MG, BUPIVACAINE 0.5% MPF 30 ML, EPINEPHrine 30MG/30ML (OR U... INSTIL SCH; -SPR25 PO; +TRANEXAMIC ACID 1,000 MG **IV Pre-op IV SCH; +VANCOMYCIN HCL 1,000 MG/270 ML BAG IV SCH; +VANCOMYCIN HCL 2,000 MG in SODIUM CHLORIDE 0.9% 500 ML IV SCH; +dexAMETHasone 4 MG TAB PO SCH
[2020-03-23] MEDS ORDERED: LIDOCAINE HCL 2% 2 ML VIAL/AMP(20MG/ML) INFIL ONE (09:37)
[2020-03-23] MEDS ORDERED: fentaNYL citrate 100 MCG/2 ML VIAL ONE (09:37)
[2020-03-23] MEDS ORDERED: PROPOFOL IV EMULSION 10 MG/ML 20 ML VIAL IV ONE (09:37)
[2020-03-23] MEDS ORDERED: MIDAZOLAM HCL 1 MG/ML 2ML VIAL ONE ×2 (09:37)
[2020-03-23] MEDS ORDERED: ONDANSETRON INJ 2 MG/ML 2 ML VIAL ONE (09:40)
--- NOTE | 2020-03-23 09:55 | History & Physical Bridge Note ---
Date of Service March 23, 2020 History & Physical Bridge Note I have examined the patient, reviewed the History & Physical and in the interval since the performance of the History & Physical I have noted the following changes of clinical significance: no changes noted
[2020-03-23] MEDS ORDERED: ORTHO JOINT ANESTHETIC ONE (10:37)
[2020-03-23] MEDS ORDERED: BACITRACIN INJ 50,000 UNIT VIAL ONE (10:37)
[2020-03-23] MEDS: TRANEXAMIC ACID 1,000 MG **IV Intra-op IV SCH ×2 (10:54→12:20)
[2020-03-23] MEDS ORDERED: ATROPINE SULFATE 0.1 MG/ML 10ML SYR IV PRN (11:23)
[2020-03-23] MEDS ORDERED: ePHEDrine sulfate 50 MG/ML AMP IV PRN (11:23)
[2020-03-23] MEDS ORDERED: ePHEDrine sulfate 50 MG/ML SYR ONE (12:22)
[2020-03-23] MEDS ORDERED: PHENYLEPHRINE 100MCG/ML 5ML SYR ONE (12:22)
--- NOTE | 2020-03-23 12:27 | Operative Report ---
Post Operative Report Pre & Post Diagnosis Operation Date: 03/23/20 11:15 Pre-Op Diagnosis: Osteoarthritis Right Knee Post-Op Diagnosis: Osteoarthritis Right Knee I identified the patient and participated in the time-out.: Yes Procedure Operation Date: 03/23/20 11:15 Actual Procedures p Right Total Knee Arthroplasty(Right) utilizing Soares & NephSky[employer] journey 2 patient matched total knee arthroplasty size 7 femur 6 tibia 15 polyethylene 35 oval patella- Victoriano March DO Surgeon Victoriano March DO Bolt [employer] [place] UCRTIS Estimated Blood Loss 5 Findings Consistent with Post-Op Diagnosis Patient presents with severe end-stage DJD varus alignment subchondral sclerosis marginal osteophytes [id number] eburnated bone with a moderate to large effusion right knee Specimens Bone and cartilage Drains Medium bore Hemovac Anesthesia Type MAC Spinal Regional Disposition Accompanied Patient To Recovery: No Disposition: Recovery Room Indications Patient presents with severe end-stage DJD right knee no response to conservative management including physical therapy anti-inflammatories relative rest activity modification corticosteroid injections Visco supplementation the above intraoperative findings are noted. Description of Procedure After proper prepping and draping of the Right lower extremity anterior midline incision was made over the region of the extensor extensor mechanism after meticulous hemostasis was obtained and maintained in subcutaneous tissues a medial parapatellar incision was made The patella was subluxed lateralward the medial lateral gutter were cleaned from any hypertrophic synovitis and scar tissue of the distal femoral block was placed and the distal femoral osteotomy c ut was made subsequently the chamfers anterior and posterior osteotomy cuts were made utilizing the 4-in-1 block the tibia was subsequently subluxed anteriorward medial and ateral meniscal remnants were excised in their entirety remnants of the anterior and posterior cruciate ligaments were excised in their entirety excellent exposure of the proximal tibia was obtained the tibial osteotomy guide was placed on the proximal tibial osteotomy cut was made once again the knee was irrigated with copious amounts of sterile saline solution the patella was subsequently everted lateralward thickened scar tissue around the patella was removed the patella was subsequently cut utilizing a freehand technique and was drilled prepared for final preparation and placement of patella socially flexion-extension gaps were checked and the equal and symmetric trials were placed to the appropriate femoral and tibial trials with poly-spacer being placed for equal flexion and extension gaps and full range of motion including extension to 0 and flexion to 140 the trial components after having been taken to recovery range of motion was subsequently removed meticulous hemostasis was obtained and maintained subsequently a knee block injection of joint cocktail including ropivacaine 0.5% 150 mg. Bupivacaine 0.5% epinephrine 1-200,030 mL's toradol 30 mg dexamethasone 4 mg ketamine 10 mg clonidine 100 micrograms normal saline solution 30 mg was infiltrated into the soft tissues of the posterior knee medial lateral gutters and periosteal synovium special attention was paid to protect neurovascular structures at all times subsequently trial components having been removed the knee was irrigated with sterile saline solution. debris was removed the proximal tibia was subsequently prepared and was made ready for the placement of the tibial component tibial component was also cemented and tamped into position the femoral component was subsequently placed and cemented in the position the patellar component was subsequently cemented in position because hemostasis once again obtained and maintained wound having been thoroughly irrigated with debridement and debridement lavage was performed as well as a medial parapatellar incision closed with #1 Vicryl in interrupted fashion subcutaneous was closed with #2 Vicryl skin was closed with skin clips. PA-C was necessary for prepping and drapping as well as wound closure of deep fascia Sub cutaneous tissue and skin and was necessary for the case. A sterile compressive dressing was placed patient was taken to recovery in stable condition of report dictated by Joaquim I attest to the content of the Intraoperative Record and any orders documented therein. Any exceptions are noted below. I attest to the content of the Intraoperative Record and any orders documented therein. Any exceptions are noted below.
--- NOTE | 2020-03-23 12:28 | Operative Report ---
Post Operative Report Pre & Post Diagnosis Operation Date: 03/23/20 11:15 Pre-Op Diagnosis: Osteoarthritis Right Knee Post-Op Diagnosis: Osteoarthritis Right Knee I identified the patient and participated in the time-out.: Yes Procedure Operation Date: 03/23/20 11:15 Actual Procedures p Right Total Knee Arthroplasty(Right) utilizing [employer] jourcook 2 patient matched total knee arthroplasty 7 femur 6 tibia 15 polyethylene 35 oval patella- Victoriano March DO Surgeon Victoriano March DO [employer] Lavell CURTIS Estimated Blood Loss 5 Findings Consistent with Post-Op Diagnosis Patient presents with severe end-stage DJD subchondral sclerosis marginal osteophytes cystic changes eburnated [id number] varus alignment and large effusion Specimens Bone and cartilage Drains Medium bore Hemovac Anesthesia Type MAC Spinal Regional Disposition Accompanied Patient To Recovery: No Disposition: Recovery Room Indications Patient presents severe stage DJD nonresponsive to conservative management physical therapy anti-inflammatories relative rest activity modifications corticosteroid injections Visco supplementation above intraoperative findings are noted. Description of Procedure After proper prepping and draping of the Right lower extremity anterior midline incision was made over the region of the extensor extensor mechanism after meticulous hemostasis was obtained and maintained in subcutaneous tissues a medial parapatellar incision was made The patella was subluxed lateralward the medial lateral gutter were cleaned from any hypertrophic synovitis and scar tissue of the distal femoral block was placed and the distal femoral osteotomy cut was made subsequently the chamfers anterior and posterior osteotomy cuts were made utilizing the 4-in-1 block the tibia was subsequently subluxed anteriorward medial and ateral meniscal remnants were excised in their entirety remnants of the anterior and posterior cruciate ligaments were excised in their entirety excellent exposure of the proximal tibia was obtained the tibial osteotomy guide was placed on the proximal tibial osteotomy cut was made once again the knee was irrigated with copious amounts of sterile saline solution the patella was subsequently everted lateralward thickened scar tissue around the patella was removed the patella was subsequently cut utilizing a freehand technique and was drilled prepared for final preparation and placement of patella socially flexion-extension gaps were checked and the equal and symmetric trials were placed to the appropriate femoral and tibial trials with poly-spacer being placed for equal flexion and extension gaps and full range of motion including extension to 0 and flexion to 140 the trial components after having been taken to recovery range of motion was subsequently removed meticulous hemostasis was obtained and maintained subsequently a knee block injection of joint cocktail including ropivacaine 0.5% 150 mg. Bupivacaine 0.5% epinephrine 1-200,030 mL's toradol 30 mg dexamethasone 4 mg ketamine 10 mg clonidine 100 micrograms normal saline solution 30 mg was infiltrated into the soft tissues of the posterior knee medial lateral gutters and periosteal synovium special attention was paid to protect neurovascular structures at all times subsequently trial components having been removed the knee was irrigated with sterile saline solution. debris was removed the proximal tibia was subsequently prepared and was made ready for the placement of the tibial component tibial component was also cemented and tamped into position the femoral component was subsequently placed and cemented in the position the patellar component was subsequently cemented in position because hemostasis once again obtained and maintained wound having been thoroughly irrigated with debridement and debridement lavage was performed as well as a medial parapatellar incision closed with #1 Vicryl in interrupted fashion subcutaneous was closed with #2 Vicryl skin was closed with skin clips. PA-C was necessary for prepping and drapping as well as wound closure of deep fascia Sub cutaneous tissue and skin and was necessary for the case. A sterile compressive dressing was placed patient was taken to recovery in stable condition of report dictated by Joaquim I attest to the content of the Intraoperative Record and any orders documented therein. Any exceptions are noted below. I attest to the content of the Intraoperative Record and any orders documented therein. Any exceptions are noted below.
--- NOTE | 2020-03-23 13:38 | XRay Report ---
TWO VIEWS RIGHT KNEE CLINICAL HISTORY: Postoperative examination. FINDINGS: AP and crosstable lateral portable views of the right knee are obtained. A right knee arthr oplasty is in near anatomic alignment. There has been undersurface remodeling of the patella. No acut e fracture is seen. There are expected postoperative changes around the knee including skin clips, a surgical drain, soft tissue edema, and subcutaneous gas. IMPRESSION: Expected postoperative changes status post right knee arthroplasty. No acute fracture is seen. ACT 112: Negative or not required by law. Electronically signed by: Brock Christianson M.D. 03/23/2020 1:37 PM
--- NOTE | 2020-03-23 14:10 | Anesthesiology Progress Note ---
Date of Service March 23, 2020 Anesthesia Post Procedure Vital Signs Vital Signs: Temp Pulse Resp BP BP Pulse Ox 03/23/20 14:05 76 17 120/64 93 03/23/20 13:55 36.4 C L 80 19 128/64 94 03/23/20 13:45 75 19 127/62 94 03/23/20 13:35 78 18 116/63 94 03/23/20 13:25 78 24 121/67 94 03/23/20 13:15 79 19 112/65 94 03/23/20 13:06 36.5 C 87 17 95/52 L 94 03/23/20 09:26 36.6 C 69 20 139/86 96 Transfer of Care Handoff Completed per policy Notes Mental Status: alert / awake / arousable Patient Amnestic to Procedure: Yes Nausea / Vomiting: adequately controlled Pain: adequately controlled Airway Patency, RR, SpO2: stable & adequate BP & HR: stable & adequate Hydration State: stable & adequate Neuraxial Anesthesia: was administered and sensory block is resolving Anesthetic Complications: no major complications apparent
[2020-03-23] MEDS ORDERED: oxyCODONE HCL IR 5 MG TAB (IMMEDIATE RELEASE) PO PRN (14:39)
[2020-03-23] MEDS ORDERED: bisacodyL 10 MG SUPP PR PRN (14:39)
[2020-03-23] MEDS ORDERED: VANCOMYCIN CONSULT ACTIVE PRN (14:39)
[2020-03-23] MEDS ORDERED: ONDANSETRON INJ 2 MG/ML 2 ML VIAL IV PRN (14:39)
[2020-03-23] MEDS ORDERED: NALOXONE HCL 0.4 MG/1 ML VIAL/CARP IV PRN (14:39)
[2020-03-23] MEDS ORDERED: HYDROmorphone INJ 0.5 MG/0.5 ML SYR IV PRN (14:39)
[2020-03-23] MEDS ORDERED: MAGNESIUM HYDROXIDE SUSP 30 ML UDC PO PRN (14:39)
[2020-03-23] MEDS ORDERED: ALBUTEROL HFA 8 GM INHALER INH PRN (14:39)
[2020-03-23] MEDS ORDERED: PHARMACY GLYCEMIC MGMT CONSULT PRN (14:50)
[2020-03-23] MEDS ORDERED: DEXTROSE 50% 50 ML SYRINGE IV PRN (15:00)
[2020-03-23] MEDS ORDERED: GLUCAGON FOR INJ 1 MG VIAL IM PRN (15:00)
[2020-03-23] MEDS ORDERED: CARBOHYDRATES FOR HYPOGLYCEMIA PO PRN (15:00)
[2020-03-23] MEDS ORDERED: GLUCOSE 10 TABS/TUBE PO PRN (15:00)
[2020-03-23] MEDS ORDERED: GLUCOSE 40% GEL 15 GM TUBE PO PRN (15:00)
--- NOTE | 2020-03-23 15:00 | Pharmacy Report ---
Glycemic Control Consultation - Date of Service March 23, 2020 - Scope Scope: Glycemic Pharmacist consulted for glycemic control and to write orders per [facility] inpatient glycemic control protocol. - Objective Weight: 119.839 kg Accuchecks BSG (last 24hrs): 03/23/20 09:18 POC Glucose 118 H HbA1c: Hemoglobin A1c 5.9 % (4.5-5.6) H 02/27/20 14:00 - Recent Pertinent Medications Outpatient Anti-diabetic Regimen: * Metformin 1000 mg PO w/ evening meal * A1c = 5.9 % (02/27/20) Risk Factors for Insulin Resistance: * Steroids: Dexamethasone 8 mg PO x 1 + intra-articular ortho mix intraoperatively * Recent Surgery: POD #0 s/p right TKA * Diet: T2DM - Assessment & Plan Assessment & Plan: ASSESSMENT: * KEESHA is a 64 year old male POD #0 s/p right TKA * Received dexamethasone 8 mg PO x 1 + intra-articular ortho mix (containing dexamethasone) intraoperatively * Fasting BSG this morning is 118 mg/dL - patient only taking metformin 1000 mg PO daily at home * Will utilize conservative bolus insulin only at this time PLAN FOR INPATIENT GLYCEMIC CONTROL: * Holding outpatient metformin * Basal insulin * hold * Bolus insulin * NovoLog per scale ACHS or Q6hrs while NPO * Goal Range: Low 110 mg/dL - High 150 mg/dL * Correction Factor: 35 mg/dL/unit * Nutritional / Prandial insulin per carb ratio of 1 unit per 12 grams CHO consumed * Please note that the plan above was derived based on current level of insulin resistance and hospital stress. These recommendations are appropriate for inpatient admission only. Plan of care upon discharge will need to be reassessed to avoid potential outpatient hypo/hyperglycemia. Thank you.
[2020-03-23] MEDS ORDERED: INSULIN ASPART 100 UNITS/ML 3 ML PEN SC ONE (15:15)
[2020-03-23] MEDS: dilTIAZem HCL 120 MG CAPCR PO SCH ×2 (16:32→20:12)
[2020-03-23] MEDS: SODIUM CHLORIDE 0.9% 1000ML 1,000 ML IV SCH ×2 (16:33→23:05)
[2020-03-23] MEDS: ACETAMINOPHEN 500 MG TAB PO SCH ×2 (16:34→23:50)
[2020-03-23] MEDS: FERROUS GLUCONATE 324 MG TAB PO SCH (16:34)
[2020-03-23] MEDS: INSULIN ASPART 100 UNITS/ML 3 ML PEN SC SCH ×2 (18:13→20:18)
[2020-03-23] MEDS: FLUTICASONE/VILANTEROL 200/25MCG 14 PUFFS/INHALER INH SCH (20:10)
[2020-03-23] MEDS: PRAVASTATIN SOD 20 MG TAB PO SCH (20:13)
[2020-03-23] MEDS: DOCUSATE SODIUM 100 MG CAP PO SCH (20:13)
[2020-03-23] MEDS: SENNA 8.6 MG TAB PO SCH (20:13)
[2020-03-23] MEDS: FINASTERIDE 5 MG TAB PO SCH (20:14)
[2020-03-23] MEDS: FAMOTIDINE 20 MG TAB PO SCH (20:15)
[2020-03-23] MEDS ORDERED: metFORMIN HCL ER 500 MG TABCR PO SCH (21:00)
[2020-03-23] MEDS ORDERED: VANCOMYCIN HCL 1,750 MG in SODIUM CHLORIDE 0.9% 500 ML IV SCH (21:00)
[2020-03-24] MEDS ORDERED: INSULIN ASPART 100 UNITS/ML 3 ML PEN SC SCH
[2020-03-24] MEDS: ACETAMINOPHEN 500 MG TAB PO SCH ×3 (05:43→21:35)
[2020-03-24 06:16] LABS: Hematocrit (blood only) 35.4 % (42-52); Hemoglobin 12.2 g/dL (14.0-18.0); Mean Corpuscular Hemoglobin 30.8 pg (25-34); Mean Corpuscular Hgb Conc 34.5 g/dL (32-36); Mean Corpuscular Volume 89.4 fL (80-100); Mean Platelet Volume 9.4 fL (7.4-10.4); Platelet Count 281 K/uL (130-400); RDW Coefficient of Variation 12.8 % (11.5-14.5); RDW Standard Deviation 41.6 fL (36.4-46.3); Red Blood Count 3.96 M/uL (4.7-6.1); White Blood Count 17.23 K/uL (4.8-10.8)
[2020-03-24 06:46] LABS: BUN Creatinine Ratio 15.7 (10-20); Calcium 9.2 mg/dl (8.5-10.1); Creatinine Clr Calc Pharmacy 75.1 ml/min; Est GFR (African American) 67.5; Est GFR (Non-African American) 58.2; Potassium 4.2 mmol/L (3.5-5.1)
--- NOTE | 2020-03-24 06:58 | Orthopedic Progress Note ---
Date of Service March 24, 2020 Assessment & Plan (1) History of total right knee replacement: POD #1 s/p Right TKA pt/ot dvt proph with JACKY/SCD/ASA plan for d/c home with OPPT at [facility] mild foot drop, likely related to intra-op injection, will cont to monitor Admission and Anticipated Discharge Date Admission Date: March 23, 2020 Subjective POD #1 s/p Right TKA Review of Systems Constitutional: no fever, no chills and no sweats Respiratory: no cough and no dyspnea Cardiovascular: no chest pain and no dyspnea Gastrointestinal: no abdominal pain, no nausea and no vomiting Physical Exam Physical Exam: Vital Signs Temp 36.7 C 03/24/20 03:23 Pulse 70 03/24/20 03:23 Resp 18 03/24/20 03:23 BP 117/62 03/24/20 03:23 Pulse Ox 94 03/24/20 03:23 Intake & Output 03/23/20 03/23/20 03/24/20 06:59 18:59 06:59 Intake Total 1890.000 / 4385.00 0 2495 / 4385.000 Output Total 5 / 1705 1700 / 1705 Balance 1885.000 / 2680.00 0 795 / 2680.000 Weight 119.839 kg Intake: IV 1240.000 / 2435.00 0 1195 / 2435.000 Lr 1,000 ml @ 15 mls/hr IV . 500 / 500 Q24H [facility] Rx#:[id number] Nss 1000ML 1,0 00 ml @ 100 mls/ 660 / 660 hr IV .Q10H [facility] Rx#:[id number] TRANEXAMIC ACI D / 0.7% NACL 1, 200 / 200 000 mg In 100 ml @ 600 mls/hr IV TODAY@0600 [facility] Rx#:[id number] Vancomycin HCl 1,750 mg In Nss 540.000 / 1075.000 535 / 1075.000 500 ml @ 200 m ls/hr IV Q12H [facility] Rx#:[id number] IV Perioperative 650 / 650 Oral 1300 / 1300 Output: Urine 1300 / 1300 Estimated Blood Loss 5 / 5 Drain Output 400 / 400 Right Knee 250 / 250 Right Knee Hem ovac 150 / 150 Constitutional: WD/WN, vitals as above no acute distress Musculoskeletal: Right Leg: NVDI, calf SNT, negative viry sign. DP palpable, sensation intact to toes/foot, mild foot drop present. dressing clean dry and intact. Results & Data ([facility]) Vital Signs (Past 12 Hours) Vital Signs Temp Pulse Resp BP Pulse Ox 03/24/20 03:23 36.7 C 70 18 117/62 94 03/23/20 23:13 36.6 C 67 16 123/75 97 03/23/20 19:56 36.6 C 76 18 125/72 95 Laboratory Results Laboratory Results WBC 17.23 K/uL (4.8-10.8) H 03/24/20 06:00 RBC 3.96 M/uL (4.7-6.1) L 03/24/20 06:00 Hgb 12.2 g/dL (14.0-18.0) L 03/24/20 06:00 Hct 35.4 % (42-52) L 03/24/20 06:00 MCV 89.4 fL (80-100) 03/24/20 06:00 MCH 30.8 pg (25-34) 03/24/20 06:00 MCHC 34.5 g/dL (32-36) 03/24/20 06:00 RDW Std Deviation 41.6 fL (36.4-46.3) 03/24/20 06:00 RDW Coeff of Stanley 12.8 % (11.5-14.5) 03/24/20 06:00 Plt Count 281 K/uL (130-400) 03/24/20 06:00 MPV 9.4 fL (7.4-10.4) 03/24/20 06:00 Immature Gran % (Auto) 0.2 % 02/27/20 14:00 Neut % (Auto) 75.2 % 02/27/20 14:00 Lymph % (Auto) 13.0 % 02/27/20 14:00 [place] % (Auto) 10.4 % 02/27/20 14:00 Eos % (Auto) 1.1 % 02/27/20 14:00 Baso % (Auto) 0.1 % 02/27/20 14:00 Neut # (Auto) 8.70 K/uL (1.4-6.5) H 02/27/20 14:00 Lymph # (Auto) 1.50 K/uL (1.2-3.4) 02/27/20 14:00 Hubbard # (Auto) 1.20 K/uL (0.11-0.59) H 02/27/20 14:00 Eos # (Auto) 0.13 K/uL (0-0.5) 02/27/20 14:00 Baso # (Auto) 0.01 K/uL (0-0.2) 02/27/20 14:00 Immature Gran # (Auto) 0.02 K/uL (0.00-0.02) 02/27/20 14:00 PT 10.7 Seconds (9.0-12.0) 02/27/20 14:00 INR 1.0 (0.9-1.1) 02/27/20 14:00 APTT 28.8 Seconds (21.0-31.0) 02/27/20 14:00 PTT Ratio 1.0 02/27/20 14:00 Sodium 137 mmol/L (136-145) 03/24/20 06:00 Potassium 4.2 mmol/L (3.5-5.1) 03/24/20 06:00 Chloride 108 mmol/L (98-107) H 03/24/20 06:00 Carbon Dioxide 23 mmol/L (21-32) 03/24/20 06:00 Anion Gap 6.0 (3-11) 03/24/20 06:00 BUN 20 mg/dl (7-18) H 03/24/20 06:00 Creatinine 1.29 mg/dl (0.6-1.4) 03/24/20 06:00 Est Cr Clr Drug Dosing 75.1 ml/min 03/24/20 06:00 Est GFR ( Amer) 67.5 03/24/20 06:00 Est GFR (Non-Af Amer) 58.2 03/24/20 06:00 BUN/Creatinine Ratio 15.7 (10-20) 03/24/20 06:00 Glucose 170 mg/dl (70-99) H 03/24/20 06:00 POC Glucose 133 mg/dl (70-99) H 03/24/20 04:16 Estimat Average Glucose 123 mg/dl 02/27/20 14:00 Hemoglobin A1c 5.9 % (4.5-5.6) H 02/27/20 14:00 Calcium 9.2 mg/dl (8.5-10.1) 03/24/20 06:00 Albumin 3.9 gm/dl (3.4-5.0) 02/27/20 14:00 Urine Color Yellow 02/27/20 14:00 Urine Appearance Clear (Clear) 02/27/20 14:00 Urine pH 5.0 (4.5-7.5) 02/27/20 14:00 Ur Specific [place] 1.027 (1.000-1.030) 02/27/20 14:00 Urine Protein Negative (Negative) 02/27/20 14:00 Urine Glucose (UA) Negative (Negative) 02/27/20 14:00 Urine Ketones Trace (Negative) H 02/27/20 14:00 Urine Blood Negative (Negative) 02/27/20 14:00 Urine Nitrite Negative (Negative) 02/27/20 14:00 Urine Bilirubin Negative (Negative) 02/27/20 14:00 Urine Urobilinogen Negative (Negative) 02/27/20 14:00 Ur Leukocyte Esterase Negative (Negative) 02/27/20 14:00 Hepatitis C Ab Screen Neg (Neg) 03/23/20 08:47 Blood Type A Negative 02/27/20 14:00 Antibody Screen NEGATIVE 02/27/20 14:00 Diagnostic Findings TWO VIEWS RIGHT KNEE CLINICAL HISTORY: Postoperative examination. FINDINGS: AP and crosstable lateral portable views of the right knee are obtained. A right knee arthroplasty is in near anatomic alignment. There has been undersurface remodeling of the patella. No acute fracture is seen. There are expected postoperative changes around the knee including skin clips, a surgical drain, soft tissue edema, and subcutaneous gas. IMPRESSION: Expected postoperative changes status post right knee arthroplasty. No acute fracture is seen.
--- NOTE | 2020-03-24 08:32 | Pharmacy Report ---
Pharmacy Glycemic Short Note 2 - Date of Service March 24, 2020 - Glycemic Short BSG Results (Last 24 hours): 03/23/20 03/23/20 03/23/20 09:18 15:02 17:07 Glucose POC Glucose 118 H 155 H 180 H 03/23/20 03/23/20 03/24/20 20:07 23:53 04:16 Glucose POC Glucose 185 H 175 H 133 H 03/24/20 03/24/20 06:00 07:58 Glucose 170 H POC Glucose 133 H OUTPATIENT ANTIDIABETIC REGIMEN: * Metformin 1000 mg PO w/ evening meal * A1c = 5.9 % (02/27/20) ASSESSMENT: * GK is now POD #1 s/p right TKA * BSGs reasonably well-controlled postoperatively (155, 180, 175, 133 mg/dL) * Fasting BSG of 133 mg/dL this morning * Will continue holding basal * ~24 hours post dexamethasone administration - will loosen Novolog parameters * Slight bump in SCr noted (1.19 -> 1.29 mg/dL - will continue holding metformin at this time) PLAN FOR INPATIENT GLYCEMIC CONTROL: * Hold outpatient oral diabetes medications (metformin) * Basal insulin * Hold * Bolus insulin - loosen * NovoLog per scale ACHS or Q6hrs while NPO * Goal Range: Low 110 mg/dL - High 150 mg/dL * Correction Factor: 30 mg/dL/unit * Nutritional / Prandial insulin per carb ratio of 1 unit per 10 grams CHO consumed PLAN FOR DISCHARGE: * HbA1c of 5.9% demonstrates good glycemic control with current regimen * Continue metformin 1000 mg PO w/ evening meal
[2020-03-24] MEDS: FERROUS GLUCONATE 324 MG TAB PO SCH ×2 (08:59→17:54)
[2020-03-24] MEDS: LOSARTAN POTASSIUM 50 MG TAB PO SCH (08:59)
[2020-03-24] MEDS: MULTIVITAMIN TAB PO SCH (08:59)
[2020-03-24] MEDS: SPIRONOLACTONE 25 MG TAB PO SCH (09:00)
[2020-03-24] MEDS: dilTIAZem HCL 120 MG CAPCR PO SCH ×3 (09:00→21:35)
[2020-03-24] MEDS: FAMOTIDINE 20 MG TAB PO SCH ×2 (09:00→21:35)
[2020-03-24] MEDS ORDERED: INSULIN GLARGINE SOLOSTAR 100 UNITS/ML 3 ML PEN SC SCH ×2 (09:00)
[2020-03-24] MEDS: LORATADINE 10 MG TAB PO SCH (09:00)
[2020-03-24] MEDS: DOCUSATE SODIUM 100 MG CAP PO SCH ×2 (09:00→21:35)
[2020-03-24] MEDS: TAMSULOSIN HCL 0.4 MG CAP PO SCH (09:01)
[2020-03-24] MEDS: INSULIN ASPART 100 UNITS/ML 3 ML PEN SC SCH ×4 (09:04→23:02)
[2020-03-24] MEDS: ASPIRIN 81 MG ECTAB PO SCH ×2 (11:02→21:35)
[2020-03-24] MEDS: FLUTICASONE/VILANTEROL 200/25MCG 14 PUFFS/INHALER INH SCH (21:33)
[2020-03-24] MEDS: FINASTERIDE 5 MG TAB PO SCH (21:35)
[2020-03-24] MEDS: PRAVASTATIN SOD 20 MG TAB PO SCH (21:35)
[2020-03-24] MEDS: SENNA 8.6 MG TAB PO SCH (21:35)
[2020-03-25 06:26] VITALS: BP 118/71; PULSE 64; TEMP 98.4; O2SAT 93
--- NOTE | 2020-03-25 07:06 | Orthopedic Progress Note ---
Date of Service March 25, 2020 Assessment & Plan (1) History of total right knee replacement: POD #2 s/p Right TKA pt/ot dvt proph with JACKY/SCD/ASA plan for d/c home with OPPT at [facility] later today mild foot drop- resolved Admission and Anticipated Discharge Date Admission Date: March 23, 2020 Subjective POD #2 s/p Right TKA foot drop resolved Review of Systems Review of Systems: All systems reviewed & are unremarkable except as noted in HPI & below Constitutional: no fever and no chills Respiratory: no cough and no dyspnea Cardiovascular: no chest pain, no dyspnea and no orthopnea Gastrointestinal: no abdominal pain, no nausea and no vomiting Physical Exam Physical Exam: Vital Signs Temp 36.9 C 03/25/20 06:24 Pulse 64 03/25/20 06:24 Resp 16 03/25/20 06:24 BP 118/71 03/25/20 06:24 Pulse Ox 93 03/25/20 06:24 Intake & Output 03/24/20 03/25/20 03/25/20 18:59 06:59 18:59 Intake Total 715 / 1265 550 / 1265 Output Total 720 / 2520 1800 / 2520 Balance -5 / -1255 -1250 / -1255 Intake: Oral 715 / 1265 550 / 1265 Output: Urine 575 / 2275 1700 / 2275 Drain Output 145 / 245 100 / 245 Right Knee Hem ovac 145 / 245 100 / 245 Other: # Unmeasured Voi ds 1 Constitutional: WD/WN, vitals as above no acute distress Musculoskeletal: Right leg: NVDI, calf SNT, negative viry sign. DP palpable, able to wiggle toes/ankle movement without difficulty. dressing clean dry and intact Results & Data ([facility]) Vital Signs (Past 12 Hours) Vital Signs Temp Pulse Resp BP Pulse Ox 03/25/20 06:24 36.9 C 64 16 118/71 93 03/24/20 23:32 36.7 C 62 16 120/75 94 03/24/20 21:31 67 131/81
[2020-03-25] MEDS: FERROUS GLUCONATE 324 MG TAB PO SCH (07:22)
[2020-03-25] MEDS: ACETAMINOPHEN 500 MG TAB PO SCH (07:22)
[2020-03-25] MEDS: LORATADINE 10 MG TAB PO SCH (07:30)
[2020-03-25] MEDS: MULTIVITAMIN TAB PO SCH (07:30)
[2020-03-25] MEDS: DOCUSATE SODIUM 100 MG CAP PO SCH (07:31)
[2020-03-25] MEDS: ASPIRIN 81 MG ECTAB PO SCH (07:31)
[2020-03-25] MEDS: TAMSULOSIN HCL 0.4 MG CAP PO SCH ×2 (07:31→07:36)
[2020-03-25] MEDS: dilTIAZem HCL 120 MG CAPCR PO SCH (07:31)
[2020-03-25] MEDS: FAMOTIDINE 20 MG TAB PO SCH (07:31)
[2020-03-25] MEDS: SPIRONOLACTONE 25 MG TAB PO SCH (07:32)
[2020-03-25] MEDS: LOSARTAN POTASSIUM 50 MG TAB PO SCH (07:32)
[2020-03-25] MEDS: INSULIN ASPART 100 UNITS/ML 3 ML PEN SC SCH (07:59)
--- NOTE | 2020-03-29 15:44 | Discharge Summary ---
Date of Service March 29, 2020 Admission HPI Per Admitting Provider Yusuf is a 64 year old male who complains of Right knee pain, presents for pre- op evaluation prior to a Right total knee replacement by dr March at [facility]. she complains of pain, crepitus, decreased range of motion, instability and stiffness in the right knee. she states that the symptoms have been chronic and non-traumatic. she states that the symptoms occur constantly with intermittent worsening. Currently the patient states that the symptoms are moderate-severe. The pain is described as aching, sharp and throbbing. The symptoms occur continuously. The symptoms are aggravated by ascending stairs, daily activities, first steps while awake walking. Prior NSAIDs include Ibuprofen and Aleve as well as prior pain medications include Tylenol. He has had Pt and sometimes uses a knee brace. Admission Exam Per Admitting Provider Physical Exam: Ht: 5ft 10in Wt: 122.47kg BP: 136/68 Constitutional: WD/WN, vitals as above no acute distress Respiratory: normal respiratory effort, lungs clear to auscultation no respiratory distress, no labored breathing and does not use accessory muscles Cardiovascular: RRR, no murmur, no edema Gastrointestinal (Abdomen): normal bowel sounds, soft, nontender, no hepatosplenomegaly Musculoskeletal: Knee: + knee abnormal to inspection (Right knee), + effusion (+1 effusion), + limited ROM of knee (ROM 0/3/110), + knee ROM with crepitation, + joint line tenderness (medial joint line) and + Emil's sign positive; no deformity, no skin erythema, no ecchymosis, no valgus laxity, no varus laxity, anterior drawer test negative, Adam's sign negative and pivot shift test negative Principal Diagnosis Right knee DJD Discharge Data Allergies Allergy/AdvReac Type Severity Reaction Status Date / Time cephalexin Allergy Mild Rash Verified 03/23/20 09:11 Penicillins Allergy Mild Rash Verified 03/23/20 09:11 shellfish derived Allergy Mild Throat Verified 03/23/20 09:11 swelling, SOB warfarin Allergy Unknown Rash Verified 03/23/20 09:11 lisinopril AdvReac Mild Cough Verified 03/23/20 09:11 codeine AdvReac Unknown Headache Verified 03/23/20 09:11 meloxicam AdvReac Unknown Headache Verified 03/23/20 09:11 Consultations 03/23/20 14:39 Consult Case Management - Discharge Planning Routine Procedures Performed Operation Date: 03/23/20 11:15 Actual Procedures p Right Total Knee Arthroplasty(Right) - Victoriano March DO Ordered Studies 03/23/20 05:00 US - OR guided needle placemen Routine Hospital Course (1) Arthritis of right knee: Patient was admitted on the above-noted date and had the above-noted surgery performed which tolerated well. On her first postoperative day, she was feeling well and had no complaints. Vital signs are stable and she was afebrile. Dressings were clean, dry, and intact. Calves are soft nontender. She had a mild foot drop on the operative side. Hemoglobin was 12.2. Patient was noted to have 17,000 white count which was likely due to surgical stress and preoperative steroids. She was otherwise remaining asymptomatic. She was started on her PT and OT protocols and continued on DVT prophylaxis and pain management. By her second postoperative day she was continued to remain stable. She had no complaints. Vital signs remaining stable. Signs remained intact. Neurovascular was intact and her foot drop had improved. Calves are soft nontender. She was progressing with her physical therapy and remaining stable and was felt she be discharged home on 03/25/2020. Total Time Total Time Spent Total Time Spent (In Minutes): 5 Discharge Plan Discharge Items Patient Disposition: Home - Self-Care Reason For Visit: Osteoarthritis Right Knee Discharge Diagnosis: Right Knee Osteoarthritis Condition on Discharge: Good Activity: Per Instructions section Lifting: Wait until after follow-up appointment Weightbearing Comment: as tolerated with walker Non-emergency contact: Surgeon Call non-emergency contact if: your pain is not controlled, your temperature is above 101.5, your wound has increased redness and your wound has increased drainage Follow-up/Referrals: Lizzy Lyon CRNP [Primary Care Provider] - Diet: Regular Addtl Attending Provider Instructions: ACTIVITY RECOMMENDATIONS: SELF CARE INSTRUCTIONS AFTER TOTAL KNEE REPLACEMENT A. You may need to continue a physical therapy program after discharge from the hospital. There are several options available to you. Your doctor will assist you in selecting the best one for you. 1. An out-patient facility 2 to 3 times a week for therapy or home therapy. 2. Continue working on all exercises taught to you in the hospital. Your goals should be to increase bending of your knee to 90 degrees and beyond and to fully straighten your knee. B. You may progress at your own pace from walking with a walker or crutches to a cane; then to no assistive devices. C. Make walking a part of your daily routine. Be up as much as comfortable with rest periods throughout the day. Rest with leg elevation is very important. Use the ice wrap frequently for the first 3-4 weeks. D. There are no restrictions on activities. You may ride in a car, shop, participate in garment tag stringer and all social activities. E. Wear the long elastic stockings (JACKY hose) 20 hours a day for 2 weeks after surgery. They can be removed several times a day for laundering and for a bath. F. You may shower, no tub baths until cleared by your doctor. SPECIAL CARE INSTRUCTIONS: VERY IMPORTANT TO READ AND REVIEW A. There are a few signs you need to watch for after you are home. Call [facility] if you notice any of the followin. Increased severe knee pain. Some pain is expected especially when you exercise. 2. Increased swelling in your leg or knee; pain or swelling of the calf muscle in either lower leg. 3. Any fluid drainage from the incision. 4. Shortness of breath or chest pain. B. Please call [facility] at if you have any concerns or questions about your operation or recovery. The doctor or his nurse will return your call promptly. C. You must take antibiotics before dental work, bladder, bowel or other surgery. Your doctor will provide you with a permanent care to carry describing this precaution. IMPORTANT: * REMEMBER TO TAKE ASPIRIN, 81 MG, TWICE DAILY FOR 4 WEEKS UNLESS OTHERWISE DIRECTED. THIS IS YOUR BLOOD THINNER. * HIGH RISK PATIENTS MAY BE PRESCRIBED A STRONGER BLOOD THINNER. THIS WILL BE PROVIDED AT DISCHARGE. * CALL IF INCREASED PAIN, REDNESS, DRAINAGE OR FEVER GREATER THAT 101. * WEAR JACKY HOSE 20 HOURS PER DAY FOR 2 WEEKS. * SOLOMON Dressing - This is a large suction dressing covering your incision. This will help pull any excess drainage from the wound and allow your incision to heal properly. You may shower with this if you can keep the unit outside of the shower. If any bleeding or leakage is noted please call your doctor's office. This will remain on your incision for 7 days and then should be removed. This can be done yourself or by the home nursing staff if applicable. The entire unit is disposable once removed. Once removed, keep incision clean and dry. If redness or drainage is noted, please call your surgeon. . FOLLOW UP VISIT: If appointment is not already scheduled: Please call [facility] to make a follow-up appointment for 2 weeks after your surgery at . Pending Studies at Discharge: No Stand-Alone Forms: My [facility], Opioid Pain Management, Smoking Cessation Medications and DC Order Prescriptions: New aspirin 81 mg Tablet,Delayed Release (Dr/Ec) 81 mg PO BID 30 Days Qty: 60 RF: 0 acetaminophen 500 mg Tablet 1,000 mg PO Q8 21 Days Qty: 126 RF: 0 oxycodone 5 mg Tablet 5 - 10 mg PO Q6H PRN (Reason: pain) Qty: 30 RF: 0 docusate sodium 100 mg Capsule 100 mg PO BID 10 Days Qty: 20 RF: 0 clindamycin HCl 300 mg capsule 300 mg PO TID 7 Days Qty: 21 RF: 0 Continued diltiazem HCl 120 mg capsule,extended release 24hr 120 mg PO TID Qty: 270 RF: 3 famotidine 20 mg tablet 20 mg PO BID Qty: 180 RF: 3 tamsulosin 0.4 mg capsule See Rx Instructions .ROUTE .COMPLEX Qty: 30 RF: 5 loratadine 10 mg capsule 10 mg PO QAM RF: 0 albuterol sulfate [Ventolin HFA] 90 mcg/actuation HFA aerosol inhaler 2 puffs INH Q6H PRN (Reason: Wheezing) RF: 0 Symbicort 160-4.5 mcg/actuation HFA aerosol inhaler 2 puffs INH BID Qty: 3 RF: 3 naproxen sodium [Aleve] 220 mg Capsule 220 mg PO QAM RF: 0 finasteride 5 mg tablet 5 mg PO QPM RF: 0 losartan 50 mg tablet 50 mg PO QAM RF: 0 pravastatin 20 mg tablet 20 mg PO QPM RF: 0 metformin 500 mg tablet extended release 24 hr 1,000 mg PO QPM RF: 0 spironolactone 25 mg tablet 25 mg PO QAM RF: 0 ferrous sulfate [iron] 325 mg (65 mg iron) Tablet 325 mg PO WK RF: 0 Discontinued aspirin 81 mg tablet,delayed release (DR/EC) 81 mg PO QAM RF: 0 ibuprofen 600 mg tablet 600 mg PO Q6H PRN (Reason: pain) Qty: 30 RF: 1 Discharge Orders: Discharge Order (Routine); Ordered 03/25/20 Ordered By: Robert Howell/Other Patient Handouts: DVT Post Op Prevention Admission Data Admit Date/Time: 03/23/20 13:20 Attending Provider: Victoriano March Admit Provider: Victoriano March Primary Care Provider: Lizzy Lyon I. Other Interventions: Discharge Summary Assessment (RN) Last Done: 03/25/20 09:04
== END 2020-03-25 10:04 | disposition home or self-care (01) | DRG 470 ==
LOC: 3E 08:29 → ASU 08:29 → OBSVTOIN 13:20